=== PATIENT | female | born 1950 | race Caucasian/White ===

== ENCOUNTER → 2018-03-10 07:45 | Outpatient (CLI) | payer OTHER, SELFPAY ==
--- NOTE | 2018-03-10 | DI.MG.S_ITS ---
BILATERAL DIGITAL SCREENING MAMMOGRAM 3D/2D WITH CAD POST LUMPECTOMY: 03/10/2018 CLINICAL: Routine screening. Personal history of right breast cancer. Family history of breast cancer. Comparison is made to exams dated: 02/25/2017 mammogram, 12/08/2015 mammogram - [facility], and 11/30/2014 mammogram - [facility]. There are scattered fibroglandular elements in both breasts. Current study was also evaluated with a Computer Aided Detection (CAD) system. There is an irregular equal density asymmetry with an indistinct margin in the right breast anterior depth superior region seen on the mediolateral oblique view only. There are surgical clips, a post-surgical scar, skin retraction, and trabecular thickening associated with the asymmetry. No other significant masses, calcifications, or other findings are seen in either breast. IMPRESSION: INCOMPLETE: NEEDS ADDITIONAL IMAGING EVALUATION The irregular equal density asymmetry in the right breast is indeterminate. Mediolateral and spot compression views as well as additional views with possible ultrasound are recommended. This exam was interpreted at Station ID: [id number]. NOTE: For mammograms, a report in lay terms will be sent to the patient. Approximately 15% of breast malignancies will not be visualized mammographically. In the management of a palpable breast mass, a negative mammogram must not discourage biopsy of a clinically suspicious lesion. Electronically Signed By: Rafiq [email or web address]:03/10/2018 08:47:49 copy to: Meryl Nixon Serjio letter sent: Additional Imaging Needed ACR BI-RADS Category 0: Incomplete [id number]
== END ==
PROVIDERS: Family Provider Surgery; PCP Acupuncturist; Visit Provider Acupuncturist
DX: Z12.31 Encounter for screening mammogram for malignant neoplasm of breast (principal); Z85.3 Personal history of malignant neoplasm of breast; Z80.3 Family history of malignant neoplasm of breast
CPT/HCPCS: 77063; 77067

== ENCOUNTER → 2018-06-16 08:15 | Outpatient (CLI) | payer OTHER, SELFPAY ==
--- NOTE | 2018-06-16 | DI.MG.S_ITS ---
UNILATERAL RIGHT DIGITAL DIAGNOSTIC MAMMOGRAM 3D/2D WITH ADDITIONAL VIEWS: 06/16/2018 CLINICAL: Additional evaluation requested from prior study. Comparison is made to exams dated: 03/10/2018 mammogram, 02/25/2017 mammogram, and 08/20/2016 mammogram - [facility]. There are scattered fibroglandular elements in right breast. Previously identified irregular equal density asymmetry with an indistinct margin in the right breast anterior depth superior region seen on the mediolateral oblique view only on comparison screening mammograms persists with additional views. There are again postsurgical changes associated with the asymmetry. IMPRESSION: INCOMPLETE: NEEDS ADDITIONAL IMAGING EVALUATION Previously identified asymmetry in the right breast anterior depth superior region with adjacent postsurgical changes persists with additional views, and likely relates findings related to evolving postsurgical changes. A targeted ultrasound is recommended for further evaluation, and will be performed immediately following this exam. This exam was interpreted at Station ID: [id number]. NOTE: For mammograms, a report in lay terms will be sent to the patient. Approximately 15% of breast malignancies will not be visualized mammographically. In the management of a palpable breast mass, a negative mammogram must not discourage biopsy of a clinically suspicious lesion. Electronically Signed By: Tommie Martinez M.D. ecl/:06/16/2018 20:58:39 copy to: Tiffani Bassett letter sent: Additional Imaging Needed ACR BI-RADS Category 0: Incomplete [id number]
--- NOTE | 2018-06-16 | DI.US.S_ITS ---
LIMITED ULTRASOUND OF RIGHT BREAST: 06/16/2018 CLINICAL: Patient returns today to evaluate a focal asymmetry in the right breast. Comparison is made to exams dated: 06/16/2018 mammogram, 03/10/2018 mammogram, 02/25/2017 mammogram, 08/20/2016 mammogram, 12/08/2015 mammogram - [facility], and 12/22/2014 breast MRI - [facility]. Real-time and Doppler ultrasound of the right breast four quadrants were performed. Conn scale images of the real-time examination were reviewed. Targeted ultrasound demonstrates hypoechoic scarring with posterior shadowing within the right breast at the site of the patient's known surgery scars extending from the 3:00 position 3 cm from the nipple to the 9 o'clock position 1 cm from the nipple. The areas of scarring demonstrate no internal vascularity and mild peripheral vascularity on Doppler ultrasound; level of vascularity is near backround parenchymal levels. There is no convincing ultrasound correlate for the previously noted irregular equal density asymmetry with an indistinct margin in the right breast anterior depth superior region seen on the mediolateral oblique view only on comparison screening and diagnostic mammograms. IMPRESSION: PROBABLY BENIGN Postsurgical scarring of the right breast as described above, with no other convincing ultrasound correlate for the previously noted asymmetry seen on screening and diagnostic mammography. This asymmetry may represent evolving postsurgical scarring. A follow-up mammogram and possible ultrasound in 6 months is recommended to demonstrate stability. The patient is advised to monitor her breasts and to return sooner for re-evaluation should she feel anything grow or change. These results and recommendations were discussed with the patient at the time of the exam by [facility] Radiologist Dr. Judah Roman in person. This exam was interpreted at Station ID: [id number]. Electronically Signed By: Tommie Martinez M.D. ecl/:06/16/2018 21:06:14 copy to: Tiffani Bassett letter sent: Followup Recommended Ultrasound BI-RADS: 3 Probably benign
== END ==
PROVIDERS: Family Provider Surgery; PCP Acupuncturist; Visit Provider Acupuncturist
DX: R92.8 Other abnormal and inconclusive findings on diagnostic imaging of breast (principal); N64.89 Other specified disorders of breast
CPT/HCPCS: 76642; 77065; G0279